=== PATIENT | female | born 1935 | race Caucasian/White ===

== ENCOUNTER 2021-07-18 14:20 | Emergency (ER) | payer MEDICARE, SELFPAY ==
--- NOTE | ~2021-07-18 | XR_ITS ---
EXAMINATION: XR chest 1V INDICATION: Pain after fall TECHNIQUE: AP view of the chest is obtained. COMPARISON: 01/25/2018 FINDINGS: Cardiomegaly is noted. Subsegmental atelectasis is noted in the left midlung zone. There is no pleural effusion or pneumothorax. The lungs are free of acute opacities. 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 Cranial migration of the right humeral head with respect to the g lenoid is consistent with chronic rotator cuff tear. IMPRESSION: 1. Cardiomegaly. Reviewed, dictated and finalized at location F. IMPRESSION: 1. Cardiomegaly.
--- NOTE | ~2021-07-18 | CT_ITS ---
EXAMINATION: CT brain wo con INDICATION: Head injury COMPARISON: 01/25/2018 TECHNIQUE: Standard unenhanced head CT. The dose-length product (DLP) was 605.33 mGy-cm. The mA was a djusted according to patient size. Iterative reconstruction technique was employed. FINDINGS: There is no acute intraparenchymal hemorrhage. No evidence of mass lesion. No evidence of a cute infarction. 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 There is mild periventricular and subc ortical hypodensity probably related to small vessel ischemic disease. There is mild prominence of th e sulci and ventricles related to cerebral atrophy. Intracranial calcified cerebral atherosclerosis i s noted. There are no extra-axial collections. There is no mass effect or midline shift. Changes in t he globes are likely from ocular lens surgery. The visualized sinuses and mastoid air cells are well aerated. There is a chronic partially calcified subcutaneous nodule of the right frontal scalp. IMPRESSION: 1. No acute intracranial abnormality. 2. Age related findings. Reviewed, dictated and finalized at location F.
--- NOTE | ~2021-07-18 | XR_ITS ---
EXAMINATION: XR elbow LT min 3V DATE: 07/18/2021 15:29 INDICATION: Left elbow pain TECHNIQUE: Anteroposterior, two oblique and lateral views of the left elbow were obtained. COMPARISON: None. FINDINGS: Alignment is normal. No fracture or joint effusion. Osteoarthritis is noted. There is soft tissue swelling around the elbow. IMPRESSION: 1. No acute osseous abnormality. Reviewed, dictated and finalized at location F.
--- NOTE | ~2021-07-18 | XR_ITS ---
EXAMINATION: XR hip LT 2V w AP pelvis INDICATION: Left hip pain TECHNIQUE: AP view of the pelvis and two views of the left hip are obtained. COMPARISON: None available FINDINGS: Bone alignment is normal. The bones are osteopenic which limits the sensitivity for fractur e however none is seen. There is mild osteoarthritis of the hips. Calcified atherosclerosis is noted. There are phleboliths in the pelvis. A pessary is noted. IMPRESSION: 1. No acute osseous abnormality. Reviewed, dictated and finalized at location F.
[2021-07-18 14:26] VITALS: BP 119/56; PULSE 83; RESP 16; TEMP 36.6; O2SAT 95
--- NOTE | 2021-07-18 15:12 | ED.FALL ---
HPI - Fall General Chief Complaint: Fall Stated Complaint: fall Time Seen by Provider: 07/18/21 14:59 Source: patient Mode of arrival: ambulatory Limitations: no limitations History of Present Illness HPI Narrative: Patient is an 85-year-old female complaining of left hip pain and left elbow pain, 6 out of 10, dull, aching, worse with palpation and movement started after she fell, ground-level, prior to arrival. Patient states that she was opening a door and there was a strong wind that swung or causing her to fall landing on her left hip, admits to bumping her head on the ground. Patient denies any loss of consciousness. Patient is on Coumadin. Patient denies any neck, chest, abdomen pelvis, back or any other extremity pain/injury. Related Data Allergies Allergy/AdvReac Type Severity Reaction Status Date / Time tramadol Allergy Unknown Verified 07/18/21 15:59 Review of Systems Review of Systems: All systems reviewed & are unremarkable except as noted in HPI and below Constitutional: Constitutional: Denies body ache(s), Denies chills, Denies excessive sweating, Denies fatigue, Denies fever(s), Denies headache(s), Denies lethargy, Denies malaise, Denies weakness and Denies weight loss Eyes: Eyes: Denies blurry vision, Denies change in vision and Denies loss of vision ENT: Denies dizziness, Denies ear discharge, Denies headache(s), Denies lip swelling, Denies epistaxis, Denies nasal congestion, Denies neck pain, Denies throat swelling and Denies tongue swelling Cardiovascular: Cardiovascular: Denies chest pain, Denies chest pain at rest, Denies chest pain with activity, Denies diaphoresis, Denies rapid heart rate, Denies edema, Denies irregular heart rhythm, Denies lightheadedness, Denies palpitations, Denies dyspnea and Denies dyspnea on exertion Respiratory: Respiratory: Denies chest congestion, Denies cough, Denies hemoptysis, Denies dyspnea and Denies dyspnea on exertion Gastrointestinal: Gastrointestinal: Denies abdominal pain, Denies melena, Denies hematochezia, Denies diarrhea, Denies nausea, Denies vomiting and Denies hematemesis Musculoskeletal: Musculoskeletal: Denies deformity, Denies joint swelling, Denies neck pain and Denies numbness Neurologic: Denies Abnormal speech present, Denies abnormal gait, Denies confusion, Denies dizziness, Denies headache(s), Denies focal weakness, Denies loss of vision, Denies numbness, Denies Other visual disturbances, Denies Sensory deficit (Neuro) and Denies weakness Psychiatric: Psychiatric: Denies confusion, Denies depression, Denies auditory hallucinations, Denies homicidal ideation and Denies suicidal ideation Endocrine: Endocrine: Denies cold intolerance, Denies excessive sweating, Denies fatigue, Denies heat intolerance and Denies palpitations Hematologic/Lymphatic: Hematologic/Lymphatic: Denies easy bleeding and Denies easy bruising Allergic/Immunologic: Allergic/Immunologic: Denies lip swelling, Denies throat swelling and Denies tongue swelling PMFSH Comments Past medical history: Atrial fib, hypertension Family history: Unknown Social history: Non-smoker no EtOH use lives at home Exam Const: General: cooperative, healthy appearing, comfortable, no acute distress, well developed, alert and awake; No confusion Orientation/consciousness: oriented to person, oriented to place, oriented to time, patient oriented x3 and No confusion Limitations: no limitations HENMT: Ears: hearing grossly normal bilaterally, TM normal on the right and TM normal on the left General nose exam: Normal external nose present, Normal nares present and No nasal discharge present Face and sinus: normal facial exam Mouth: Yes Normal oral and palatal mucosa present, Yes lip normal, Yes tongue normal and Yes oropharynx normal Throat: posterior oropharynx normal, tonsils normal and uvula midline Other: Mild contusion occipital area Eyes: General: appearance normal, both eyes and all related structures
[2021-07-18] MEDS: HYDROcodone/acetaminophen (*CRX) 5-325 MG TABLET 1 TAB PO (16:00)
[2021-07-18 16:56] VITALS: BP 140/76; PULSE 79; RESP 15; O2SAT 99
== END 2021-07-18 16:56 | disposition home or self-care (01) ==
PROVIDERS: Emergency Provider Emergency Medicine
DX: S70.02XA Contusion of left hip, initial encounter (principal); S53.402A Unspecified sprain of left elbow, initial encounter; S56.912A Strain of unspecified muscles, fascia and tendons at forearm level, left arm, initial encounter; S09.90XA Unspecified injury of head, initial encounter; I48.91 Unspecified atrial fibrillation; I10 Essential (primary) hypertension; Z79.01 Long term (current) use of anticoagulants; W18.39XA Other fall on same level, initial encounter; I51.7 Cardiomegaly
CPT/HCPCS: 70450; 71045; 73080; 73502; 99284; A9270